=== PATIENT | male | born 1990 | race African-American/Black ===

== ENCOUNTER 2017-09-25 21:40 | Emergency (ER) | payer SELFPAY ==
[~2017-09-25] VITALS: Ht 165.1 cm; Wt 110.0 kg
[~2017-09-25 21:40] MED LIST: IBUP800 PO
[2017-09-25 21:53] VITALS: BP 128/76; PULSE 81; RESP 16; TEMP 98.9; O2SAT 98
[2017-09-25] MEDS ORDERED: SODIUM CHLOR 0.9% 1000 ML INJ 1,000 ML IV SCH (23:34)
[2017-09-25 23:37] VITALS: BP 158/82; PULSE 91; RESP 18; O2SAT 98
--- NOTE | 2017-09-25 23:40 | PD ---
HPI Chief Complaint: GI Complaint Time Seen by Provider: 23:32 Travel History International Travel<30 days: No Contact w/Intl Traveler<30days: No Traveled to known affect area: No History of Present Illness HPI 27-year-old male brought in by ambulance with complaints of nausea, vomiting, diarrhea that started at around 2:00 PM after eating [employer]. Patient reports that emesis consists of food and bowel movements have been loose/brown/ watery. Emesis and bowel movements are nonbloody. He is having some epigastric burning sensation. No history of abdominal surgeries. He is having subjective fevers and chills. No urinary symptoms. PFSH Past Medical History Asthma: Yes ( A CHILD) Cardiovascular Problems: Yes (htn) Diminished Hearing: No Respiratory: Yes (asthma as a child) Immunizations Current: Yes Past Surgical History Surgical History: No Previous Surgery Social History Alcohol Use: No Tobacco Use: Yes (3/4 PPK A DAY) Substance Use: No Allergies-Medications (Allergen,Severity, Reaction): Coded Allergies: No Known Allergies (Verified , 02/19/16) Reported Meds & Prescriptions Reported Meds & Active Scripts Active Zofran Odt (Ondansetron Odt) 4 Mg Tab 4 Mg SL Q8HR PRN Review of Systems Except as stated in HPI: all other systems reviewed are Neg Physical Exam Narrative GENERAL: Well-developed, well-nourished, comfortable, no apparent distress. SKIN: Focused skin assessment warm/dry. HEAD: Atraumatic. Normocephalic. EYES: Pupils equal and round. No scleral icterus. No injection or drainage. ENT: No nasal bleeding or discharge. Mucous membranes pink and dry. NECK: Trachea midline. No JVD. CARDIOVASCULAR: Regular rate and rhythm. RESPIRATORY: No accessory muscle use. Clear to auscultation. Breath sounds equal bilaterally. GASTROINTESTINAL: Abdomen soft, nondistended. Mild epigastric tenderness without peritoneal signs. Normal bowel sounds. Rest of abdomen is soft and nontender. No hernias. MUSCULOSKELETAL: No obvious deformities. No clubbing. No cyanosis. No edema. NEUROLOGICAL: Awake and alert. No obvious cranial nerve deficits. Motor grossly within normal limits. Normal speech. PSYCHIATRIC: Appropriate mood and affect; insight and judgment normal. Data Data Last Documented VS Vital Signs Date Time Temp Pulse Resp B/P (MAP) Pulse Ox O2 Delivery O2 Flow Rate FiO2 5/24/18 23:52 18 09/25/17 23:37 91 98 Room Air 09/25/17 21:53 98.9 Orders Orders Complete Blood Count With Diff (09/25/17 23:34) Comprehensive Metabolic Panel (09/25/17 23:34) Lipase (09/25/17 23:34) Prothrombin Time / Inr (Pt) (09/25/17 23:34) Act Partial Throm Time (Ptt) (09/25/17 23:34) Urinalysis - C+S If Indicated (09/25/17 23:34) Iv Access Insert/Monitor (09/25/17 23:34) Ecg Monitoring (09/25/17:34) Oximetry (09/25/17 23:34) Sodium Chlor 0.9% 1000 Ml Inj (Ns 1000 M (09/25/17 23:34) Sodium Chloride 0.9% Flush (Ns Flush) (09/25/17 23:45) Al-Mag Hy-Si 40-40-4 Mg/Ml Liq (Mag-Al P (09/25/17 23:45) Lidocaine 2% Viscous (Xylocaine 2% Visco (09/25/17 23:45) Ondansetron Odt (Zofran Odt) (09/25/17 23:45) Urine Culture (09/26/17 00:10) Gc And Chlamydia Pcr (09/26/17 00:34) Ct Abd/Pel W Iv Contrast(Rout) (09/26/17 00:44) Diatrizoate Liq ( Gastroview Liq) (09/26/17 00:45) Oral Contrast - Adult (09/26/17 ) Labs Laboratory Tests Test 09/25/17 23:40 09/26/17 00:10 White Blood Count 9.9 TH/MM3 Red Blood Count 5.54 MIL/MM3 Hemoglobin 16.3 GM/DL Hematocrit 46.7 % Mean Corpuscular Volume 84.2 FL Mean Corpuscular Hemoglobin 29.5 PG Mean Corpuscular Hemoglobin Concent 35.0 % Red Cell Distribution Width 13.7 % Platelet Count 216 TH/MM3 Mean Platelet Volume 8.4 FL Neutrophils (%) (Auto) 82.5 % Lymphocytes (%) (Auto) 8.5 % Monocytes (%) (Auto) 8.0 % Eosinophils (%) (Auto) 0.6 % Basophils (%) (Auto) 0.4 % Neutrophils # (Auto) 8.1 TH/MM3 Lymphocytes # (Auto) 0.8 TH/MM3 Monocytes # (Auto) 0.8 TH/MM3 Eosinophils # (Auto) 0.1 TH/MM3 Basophils # (Auto) 0.0 TH/MM3 CBC Comment AUTO DIFF Prothrombin Time 10.7 SEC Prothromb Time International Ratio 1.1 RATIO Activated Partial Thromboplast Time 23.4 SEC Blood Urea Nitrogen 15 MG/DL Creatinine 0.86 MG/DL Random Glucose 94 MG/DL Total Protein 8.0 GM/DL Albumin 4.4 GM/DL Calcium Level 9.1 MG/DL Alkaline Phosphatase 83 U/L Aspartate Amino Transf (AST/SGOT) 20 U/L Alanine Aminotransferase (ALT/SGPT) 34 U/L Total Bilirubin 0.8 MG/DL Sodium Level 144 MEQ/L Potassium Level 4.0 MEQ/L Chloride Level 107 MEQ/L Carbon Dioxide Level 25.4 MEQ/L Anion Gap 12 MEQ/L Estimat Glomerular Filtration Rate 129 ML/MIN Lipase 77 U/L Urine Color YELLOW Urine Turbidity CLEAR Urine pH 5.5 Urine Specific [place] 1.032 Urine Protein TRACE mg/dL Urine Glucose (UA) NEG mg/dL Urine Ketones 40 mg/dL Urine Occult Blood NEG Urine Nitrite NEG Urine Bilirubin NEG Urine Urobilinogen LESS THAN 2.0 MG/DL Urine Leukocyte Esterase SMALL Urine RBC 2 /hpf Urine WBC 20 /hpf Urine Squamous Epithelial Cells <1 /hpf Urine Mucus FEW /lpf Microscopic Urinalysis Comment CULTURE INDICATED MDM Medical Decision Making Medical Screen Exam Complete: Yes Emergency Medical Condition: Yes Differential Diagnosis Gastroenteritis, dehydration, metabolic abnormality, food poisoning, gastritis, peptic ulcer disease, pancreatitis, hepatobiliary disease, acute intra-abdominal /surgical process unlikely Narrative Course Initial vital signs show heart rate 81, blood pressure 120/76, pulse ox 90% on room air, oral temp of 90.9F. CBC: WBC 9.9, hemoglobin 16.3, hematocrit 46.7, platelets 216, neutrophils 83%. CMP is unremarkable. Lipase is 77. UA shows 40 ketones, small leukocyte esterase, 20 WBCs, negative nitrites. Patient is not having dysuria. He is sexually active with one partner and believes he is in a monogamous relationship. She is present in the room currently. Plan is to test her urine for gonorrhea and chlamydia and if they are positive, they will be called to receive treatment. Patient was given a liter normal saline IV and reassessment he states his nausea feels improved. He still complains of abdominal discomfort, now states that he has periumbilical discomfort. On exam he is tender in the para umbilical area. There is no rebound or guarding. CT abdomen pelvis will be performed to rule out appendicitis. At approximately 1:00 AM at the end of my shift the patient was signed out to PADMINI Calle to follow-up with CT abdomen pelvis results and disposition. Diagnosis Primary Impression: Gastroenteritis Referrals: [facility] 3 days Primary Care Physician 3 days Additional Instructions: Follow-up with a primary care physician this week. Stay hydrated with plenty of fluids. Return to the emergency department for worsening symptoms or any other concerns. Scripts Ondansetron Odt (Zofran Odt) 4 Mg Tab 4 MG SL Q8HR Y for Nausea/Vomiting, #20 TAB 0 Refills Prov: Kris Kat MD 09/26/17 Disposition: 01 DISCHARGE HOME Condition: Stable Kris Kat MD September 25, 2017 23:40
[2017-09-25] MEDS ORDERED: SODIUM CHLORIDE 0.9% FLUSH 10 ML FLUSH IV FLUSH PRN (23:45)
[2017-09-25] MEDS ORDERED: ALUMINUM/MAGNESIUM/SIMETH 30 ML CUP PO ONE (23:45)
[2017-09-25] MEDS ORDERED: LIDOCAINE VISCOUS 2% SOLN 15 ML UDC PO ONE (23:45)
[2017-09-25] MEDS ORDERED: ONDANSETRON ODT 4 MG TAB PO ONE (23:45)
[2017-09-25 23:52] VITALS: RESP 18
[2017-09-25 23:58] LABS: AUTOMATED NEUTROPHIL # 8.1 TH/MM3 (1.8-7.7); BASOPHIL % 0.4 % (0.0-2.0); EOSINOPHIL # 0.1 TH/MM3 (0-0.4); EOSINOPHIL % 0.6 % (0.0-4.0); HEMATOCRIT 46.7 % (39.0-51.0); HEMOGLOBIN 16.3 GM/DL (13.0-17.0); LYMPH % 8.5 % (9.0-44.0); LYMPHOCYTE # 0.8 TH/MM3 (1.0-4.8); MEAN CELL VOLUME 84.2 FL (80.0-100.0); MEAN CORPUSCULAR HEMOGLOBIN 29.5 PG (27.0-34.0); MEAN PLATELET VOLUME 8.4 FL (7.0-11.0); MONOCYTE # 0.8 TH/MM3 (0-0.9); NEUT % 82.5 % (16.0-70.0); PLATELET COUNT 216 TH/MM3 (150-450); RED BLOOD COUNT 5.54 MIL/MM3 (4.50-5.90); RED CELL DISTRIBUTION WIDTH 13.7 % (11.6-17.2); WHITE BLOOD COUNT 9.9 TH/MM3 (4.0-11.0)
[2017-09-26 00:16] LABS: ALBUMIN 4.4 GM/DL (3.4-5.0); ALT (GPT) 34 U/L (12-78); AST (GOT) 20 U/L (15-37); BICARBONATE 25.4 MEQ/L (21.0-32.0); BLOOD UREA NITROGEN 15 MG/DL (7-18); CALCIUM 9.1 MG/DL (8.5-10.1); CHLORIDE 107 MEQ/L (98-107); CREATININE 0.86 MG/DL (0.60-1.30); GLOMERULAR FILTRATION RATE 129 ML/MIN (>89); GLUCOSE,RANDOM 94 MG/DL (74-106); SODIUM (NA) 144 MEQ/L (136-145)
[2017-09-26 00:18] LABS: ALKALINE PHOSPHATASE 83 U/L (45-117); TOTAL BILIRUBIN ADULT 0.8 MG/DL (0.2-1.0)
[2017-09-26 00:19] LABS: INTERNATIONAL NORMALIZED RATIO 1.1 RATIO; PROTHROMBIN TIME - PATIENT 10.7 SEC (9.8-11.6)
[2017-09-26 00:29] LABS: BILIRUBIN, URINE NEG (NEG); BLOOD, URINE NEG (NEG); GLUCOSE,URINE NEG (NEG); KETONE, URINE 40 mg/dL (NEG); MUCUS URINE FEW /lpf (OCC); NITRITE,URINE NEG (NEG); PH, URINE 5.5 (5.0-8.5); SQUAMOUS EPITHELIAL CELL URINE <1 /hpf (0-5); URINE COLOR YELLOW (YELLW/STRAW); URINE LEUKOCYTE ESTERASE SMALL (NEG)
[2017-09-26] MEDS ORDERED: ZOFR4TAB3 SL (00:40)
[2017-09-26] MEDS ORDERED: DIATRIZOATE MEGLUM/DIATRIZOATE SOD 9 ML CUP PO ONE (00:45)
[2017-09-26] MEDS ORDERED: cefTRIAXone INJ 1,000 MG in SODIUM CHLORIDE 0.9% INJ 100 ML IV ONE (02:00)
[2017-09-26] MEDS ORDERED: AZITHROMYCIN PWD FOR SUSP 1 GM PACKET PO ONE (02:00)
[2017-09-26 02:45] VITALS: BP 153/86; PULSE 97; RESP 20; O2SAT 99
[2017-09-26] MEDS ORDERED: IOHEXOL 350 MG/ML 10 ML VIAL (for RAD DIAG) IVCONTRAST ONE (03:05)
--- NOTE | 2017-09-26 03:17 | RADRPT ---
EXAM DATE: 09/26/2017 3:11 AM EDT AGE/SEX: 27 years / Male INDICATIONS: Abdominal pain with nausea, vomiting, and diarrhea after eating [employer]. CLINICAL DATA: This is the patient's initial encounter. Patient reports that signs and symptoms have been present for 1 day and indicates a pain score of 7/10. MEDICAL/SURGICAL HISTORY: None. None. ORAL CONTRAST: Prescribed oral contrast ingested. RADIATION DOSE: 19.51 CTDI (mGy) COMPARISON: No prior [place] exams available for comparison. TECHNIQUE: Multiple contiguous axial images were obtained through the abdomen and pelvis following b olus infusion of 100 ml Omnipaque 350 (iohexol) nonionic water-soluble contrast as a single exam do se. Prescribed oral contrast ingested. Using automated exposure control and adjustment of the mA and /or kV according to patient size, the radiation dose was kept as low as reasonably achievable to obta in optimal diagnostic quality images. FINDINGS: Lower Lungs: The visualized lower lungs are clear. Liver: The liver has a homogeneous density without space-occupying lesion. There is no dilation of th e biliary tree. Spleen: There is a 5 cm area of low density seen at the posterior inferior aspect of the spleen. Pancreas: Unremarkable without mass or calcification. Kidneys: Normal in size and shape. No evidence of mass or hydronephrosis. Adrenal Glands: Unremarkable. Aorta: The aorta and proximal iliac vessels are grossly unremarkable without aneurysmal dilation. Bowel/Mesentery: The stomach is distended. It is fluid-filled. The small bowel and colon appear tena sly normal. The appendix is normal. Abdominal Wall: Intact. Retroperitoneum: No evidence of adenopathy in the retrocrural, para-aortic, or deep pelvic regions. Bladder: Contours are smooth. Reproductive Organs: Prostatic calcifications are present. Inguinal: The inguinal region is unremarkable without evidence of adenopathy. Bony Structures: Unremarkable. CONCLUSION: 1. Gastric distention. 2. 5 cm area of low density seen in the posterior inferior aspect of the spleen. This is nonspecific . An underlying lesion such as a hemangioma could have this appearance. An infarct in the spleen coul d've a similar appearance. Electronically signed by: Hubert Smith MD 09/26/2017 3:16 AM EDT
--- NOTE | 2017-09-26 03:55 | PD ---
Physical Exam Date Seen by Provider: September 26, 2017 Time Seen by Provider: 03:53 Narrative GENERAL: This is a well-nourished, well-developed patient, in no apparent distress. SKIN: No rashes, ecchymoses or lesions. Warm and dry. HEAD: Atraumatic. Normocephalic. EYES: PERRL, EOMI, no discharge or injection. No scleral icterus. EARS: Clear NOSE: Nasal turbinates appear normal. THROAT: Mucosa pink and moist. Airway patent. NECK: Trachea midline. supple, moves head freely. LUNGS: Clear to auscultation. CV: Regular in rhythm. ABDOMEN: Soft nontender. EXT: No clubbing cyanosis or edema. Data Data Last Documented VS Vital Signs Date Time Temp Pulse Resp B/P (MAP) Pulse Ox O2 Delivery O2 Flow Rate FiO2 09/26/17 02:45 97 20 153/86 (108) 99 Room Air 09/25/17 21:53 98.9 Orders Orders Complete Blood Count With Diff (09/25/17 23:34) Comprehensive Metabolic Panel (09/25/17 23:34) Lipase (09/25/17 23:34) Prothrombin Time / Inr (Pt) (09/25/17 23:34) Act Partial Throm Time (Ptt) (09/25/17 23:34) Urinalysis - C+S If Indicated (09/25/17 23:34) Iv Access Insert/Monitor (09/25/17 23:34) Ecg Monitoring (09/25/17 23:34) Oximetry (09/25/17 23:34) Sodium Chlor 0.9% 1000 Ml Inj (Ns 1000 M (09/25/17 23:34) Sodium Chloride 0.9% Flush (Ns Flush) (09/25/17 23:45) Al-Mag Hy-Si 40-40-4 Mg/Ml Liq (Mag-Al P (09/25/17 23:45) Lidocaine 2% Viscous (Xylocaine 2% Visco (09/25/17 23:45) Ondansetron Odt (Zofran Odt) (09/25/17 23:45) Urine Culture (09/26/17 00:10) Gc And Chlamydia Pcr (09/26/17 00:34) Ct Abd/Pel W Iv Contrast(Rout) (09/26/17 00:44) Diatrizoate Liq ( Gastropatrick Liq) (09/26/17 00:45) Oral Contrast - Adult (09/26/17 ) Ceftriaxone Inj (Rocephin Inj) (09/26/17 02:00) Azithromycin Powd Pack (Zithromax Powd P (09/26/17 02:00) Iohexol 350 Inj (Omnipaque 350 Inj) (09/26/17 03:05) Labs Laboratory Tests Test 09/25/17 23:40 09/26/17 00:10 White Blood Count 9.9 TH/MM3 Red Blood Count 5.54 MIL/MM3 Hemoglobin 16.3 GM/DL Hematocrit 46.7 % Mean Corpuscular Volume 84.2 FL Mean Corpuscular Hemoglobin 29.5 PG Mean Corpuscular Hemoglobin Concent 35.0 % Red Cell Distribution Width 13.7 % Platelet Count 216 TH/MM3 Mean Platelet Volume 8.4 FL Neutrophils (%) (Auto) 82.5 % Lymphocytes (%) (Auto) 8.5 % Monocytes (%) (Auto) 8.0 % Eosinophils (%) (Auto) 0.6 % Basophils (%) (Auto) 0.4 % Neutrophils # (Auto) 8.1 TH/MM3 Lymphocytes # (Auto) 0.8 TH/MM3 Monocytes # (Auto) 0.8 TH/MM3 Eosinophils # (Auto) 0.1 TH/MM3 Basophils # (Auto) 0.0 TH/MM3 CBC Comment AUTO DIFF Differential Comment AUTO DIFF CONFIRMED Platelet Estimate NORMAL Platelet Morphology Comment NORMAL Prothrombin Time 10.7 SEC Prothromb Time International Ratio 1.1 RATIO Activated Partial Thromboplast Time 23.4 SEC Blood Urea Nitrogen 15 MG/DL Creatinine 0.86 MG/DL Random Glucose 94 MG/DL Total Protein 8.0 GM/DL Albumin 4.4 GM/DL Calcium Level 9.1 MG/DL Alkaline Phosphatase 83 U/L Aspartate Amino Transf (AST/SGOT) 20 U/L Alanine Aminotransferase (ALT/SGPT) 34 U/L Total Bilirubin 0.8 MG/DL Sodium Level 144 MEQ/L Potassium Level 4.0 MEQ/L Chloride Level 107 MEQ/L Carbon Dioxide Level 25.4 MEQ/L Anion Gap 12 MEQ/L Estimat Glomerular Filtration Rate 129 ML/MIN Lipase 77 U/L Urine Color YELLOW Urine Turbidity CLEAR Urine pH 5.5 Urine Specific [place] 1.032 Urine Protein TRACE mg/dL Urine Glucose (UA) NEG mg/dL Urine Ketones 40 mg/dL Urine Occult Blood NEG Urine Nitrite NEG Urine Bilirubin NEG Urine Urobilinogen LESS THAN 2.0 MG/DL Urine Leukocyte Esterase SMALL Urine RBC 2 /hpf Urine WBC 20 /hpf Urine Squamous Epithelial Cells <1 /hpf Urine Mucus FEW /lpf Microscopic Urinalysis Comment CULTURE INDICATED MDM Medical Record Reviewed: Yes Supervised Visit with JACINTA: Yes Interpretation(s) Laboratory Tests Test 09/25/17 23:40 09/26/17 00:10 White Blood Count 9.9 TH/MM3 Red Blood Count 5.54 MIL/MM3 Hemoglobin 16.3 GM/DL Hematocrit 46.7 % Mean Corpuscular Volume 84.2 FL Mean Corpuscular Hemoglobin 29.5 PG Mean Corpuscular Hemoglobin Concent 35.0 % Red Cell Distribution Width 13.7 % Platelet Count 216 TH/MM3 Mean Platelet Volume 8.4 FL Neutrophils (%) (Auto) 82.5 % Lymphocytes (%) (Auto) 8.5 % Monocytes (%) (Auto) 8.0 % Eosinophils (%) (Auto) 0.6 % Basophils (%) (Auto) 0.4 % Neutrophils # (Auto) 8.1 TH/MM3 Lymphocytes # (Auto) 0.8 TH/MM3 Monocytes # (Auto) 0.8 TH/MM3 Eosinophils # (Auto) 0.1 TH/MM3 Basophils # (Auto) 0.0 TH/MM3 CBC Comment AUTO DIFF Differential Comment AUTO DIFF CONFIRMED Platelet Estimate NORMAL Platelet Morphology Comment NORMAL Prothrombin Time 10.7 SEC Prothromb Time International Ratio 1.1 RATIO Activated Partial Thromboplast Time 23.4 SEC Blood Urea Nitrogen 15 MG/DL Creatinine 0.86 MG/DL Random Glucose 94 MG/DL Total Protein 8.0 GM/DL Albumin 4.4 GM/DL Calcium Level 9.1 MG/DL Alkaline Phosphatase 83 U/L Aspartate Amino Transf (AST/SGOT) 20 U/L Alanine Aminotransferase (ALT/SGPT) 34 U/L Total Bilirubin 0.8 MG/DL Sodium Level 144 MEQ/L Potassium Level 4.0 MEQ/L Chloride Level 107 MEQ/L Carbon Dioxide Level 25.4 MEQ/L Anion Gap 12 MEQ/L Estimat Glomerular Filtration Rate 129 ML/MIN Lipase 77 U/L Urine Color YELLOW Urine Turbidity CLEAR Urine pH 5.5 Urine Specific [place] 1.032 Urine Protein TRACE mg/dL Urine Glucose (UA) NEG mg/dL Urine Ketones 40 mg/dL Urine Occult Blood NEG Urine Nitrite NEG Urine Bilirubin NEG Urine Urobilinogen LESS THAN 2.0 MG/DL Urine Leukocyte Esterase SMALL Urine RBC 2 /hpf Urine WBC 20 /hpf Urine Squamous Epithelial Cells <1 /hpf Urine Mucus FEW /lpf Microscopic Urinalysis Comment CULTURE INDICATED Last 24 hours Impressions Abdomen/Pelvis CT 09/26/17 0044 Signed Impressions: CONCLUSION: 1. Gastric distention. 2. 5 cm area of low density seen in the posterior inferior aspect of the splee n. This is nonspecific. An underlying lesion such as a hemangioma could have th is appearance. An infarct in the spleen could've a similar appearance. Differential Diagnosis . Narrative Course Patient is feeling improved. At this point his CAT scan is negative. Patient has leuko-urea. Patient has been given Rocephin and Zithromax. Cultures are pending. The patient is medically stable for discharge at this point. Diagnosis Primary Impression: Gastroenteritis Referrals: [facility] 3 days Primary Care Physician 3 days Patient Instructions: General Instructions Departure Forms: Tests/Procedures Additional Instruction: Follow-up with a primary care physician this week. Stay hydrated with plenty of fluids. Return to the emergency department for worsening symptoms or any other concerns. Med/Other Pt SpecificInfo: No Meds Exist/No RX given Scripts Ondansetron Odt (Zofran Odt) 4 Mg Tab 4 MG SL Q8HR Y for Nausea/Vomiting, #20 TAB 0 Refills Prov: Kris Kat MD 09/26/17 Disposition: 01 DISCHARGE HOME Condition: Stable Tao Ferris September 26, 2017 03:55
[2017-09-26 04:00] VITALS: BP 155/86; PULSE 94; RESP 18; TEMP 98.4; O2SAT 100
== END 2017-09-26 04:15 | disposition home or self-care (01) ==
LOC: NEPD 21:40
DX: K52.9 Noninfective gastroenteritis and colitis, unspecified (principal); J45.909 Unspecified asthma, uncomplicated; I10 Essential (primary) hypertension; F17.200 Nicotine dependence, unspecified, uncomplicated
CPT/HCPCS: 74177; 80053; 81001; 83690; 85025; 85610; 85730; 87086; 87491; 87591; 96361; 96374; 99284; J0696; J7030; Q9963; Q9967